=== PATIENT | female | born 1960 | race Caucasian/White ===

== ENCOUNTER 2018-01-06 11:22 | Outpatient (CLI) | payer OTHER ==
[2018-01-06 18:04] LABS: BASOPHILS # (AUTO) 0.1 10^3/uL (0.0-0.1); BASOPHILS % (AUTO) 1.1 %; EOSINOPHILS # (AUTO) 0.1 10^3/uL (0.0-0.7); EOSINOPHILS % (AUTO) 2.1 %; LYMPHOCYTES # (AUTO) 1.4 10^3/uL (1.5-3.5); LYMPHOCYTES % (AUTO) 28.5 %; MEAN CORPUSCULAR HEMOGLOBIN 30.4 pg (27.0-31.0); MEAN CORPUSCULAR HGB CONC 33.4 g/dL (32.0-36.0); MEAN CORPUSCULAR VOLUME 90.9 fL (81.0-99.0); MEAN PLATELET VOLUME 8.5 fL (7.9-10.8); MONOCYTES # (AUTO) 0.4 10^3/uL (0.0-1.0); MONOCYTES % (AUTO) 8.7 %; NEUTROPHILS # (AUTO) 2.9 10^3/uL (1.5-6.6); NEUTROPHILS % (AUTO) 59.6 %; PLT - PLATELET COUNT 247 10^3/uL (130-450); RED BLOOD COUNT 4.28 10^6/uL (4.20-5.40); RED CELL DISTRIBUTION WIDTH 13.1 % (12.0-15.0); WHITE BLOOD COUNT 4.9 x10^3/uL (4.8-10.8)
[2018-01-06 18:21] LABS: % IRON SATURATION 21 % (20-50); ALBUMIN 4.4 g/dL (3.2-5.5); ALBUMIN/GLOBULIN RATIO 1.6 (1.0-2.2); ALKALINE PHOSPHATASE 61 IU/L (42-121); ALT ALANINE AMINOTRANSFERASE 20 IU/L (10-60); AST ASPARTATE AMINOTRANSFERASE 26 IU/L (10-42); BILIRUBIN,TOTAL 0.7 mg/dL (0.2-1.0); BUN - BLOOD UREA NITROGEN 16 mg/dL (6-20); CARBON DIOXIDE - CO2 28 mmol/L (21-32); CHLORIDE 104 mmol/L (101-111); CHOL/HDL RATIO 2.3 (<4.4); CHOLESTEROL 223 mg/dL; CREATININE 0.6 mg/dL (0.4-1.0); CRP HIGH SENSITIVITY 1.2 mg/L; GFR - MDRD 103 (>89); GLUCOSE 83 mg/dL (70-100); HDL CHOLESTEROL 95 mg/dL; IRON 73 ug/dL (28-170); LDL CHOLESTEROL,CALCULATED 115 mg/dL; LDL/HDL RATIO 1.2 (<4.4); SODIUM 138 mmol/L (135-145); TOTAL IRON BINDING CAPACITY 353 ug/dL (250-450); TOTAL PROTEIN 7.1 g/dL (6.7-8.2); TRANSFERRIN 252 mg/dL (192-382); VLDL CHOLESTEROL 13 mg/dL
[2018-01-13 15:51] LABS: ENDOMYSIAL ANTIBODY SCR IGA NEGATIVE (NEGATIVE); GLIADIN (DEAMIDATED) AB IGA 4 U (<20); GLIADIN (DEAMIDATED) AB IGG 3 U (<20); IMMUNOGLOBULIN A 91 mg/dL (81-463); TISSUE TRANSGLUTAMINASE IGA <1 U/mL; TISSUE TRANSGLUTAMINASE IGG 1 U/mL
== END 2018-01-06 11:23 | disposition home or self-care (01) ==
LOC: LAB.F 11:22
PROVIDERS: ATTEND Naturopath
DX: E78.5 Hyperlipidemia, unspecified (principal); R42 Dizziness and giddiness; R53.83 Other fatigue; R10.9 Unspecified abdominal pain; R14.0 Abdominal distension (gaseous)
CPT/HCPCS: 36415; 80053; 80061; 82728; 82784; 83516; 83540; 83721; 84466; 85025; 86140; 86141; 86256

== ENCOUNTER 2018-03-27 13:55 | Outpatient (CLI) | payer OTHER ==
--- NOTE | 2018-03-27 16:27 | XRAY Report ---
Procedure Date: 03/27/2018 Accession Number: [id number] / [id number] Procedure: XRS - Cervical Spine Complete CPT Code: FULL RESULT: EXAM: Cervical Spine Complete DATE: 03/27/2018 2:17 PM CLINICAL HISTORY: CERVICALGIA COMPARISON: None. TECHNIQUE: 5 views. FINDINGS: Alignment: Preserved cervical alignment with relative straightening of the normal cervical curvature. Bones: The cervical vertebral bodies and posterior elements are well-visualized from the skull base through C7-T1. No fractures or bone lesions. Disks: Mild degenerative disc disease most pronounced at C5-6 and C6-7. Facets: No degenerative disease. Neural Foramina: The neural foramina have bony patency bilaterally. Soft Tissues: Normal. No prevertebral soft tissue swelling. The visualized lung apices are clear. IMPRESSION: Mild degenerative disease as described. RADIA
== END 2018-03-27 13:56 | disposition home or self-care (01) ==
LOC: DI.S 13:55
PROVIDERS: ATTEND Naturopath
DX: M50.31 Other cervical disc degeneration, high cervical region (principal)
CPT/HCPCS: 72050

== ENCOUNTER 2018-05-24 10:17 | Outpatient (CLI) | payer OTHER ==
[2018-05-24] MEDS ORDERED: GADOBUTROL 7.5 MMOL/7.5 ML VIAL ONE (10:41)
--- NOTE | 2018-05-25 18:24 | MRI Report ---
Reason: CERVICALGIA,PARESTHESIA OF SKIN Procedure Date: 05/24/2018 Accession Number: [id number] / [id number] Procedure: MRI - Cervical Spine W/O CPT Code: FULL RESULT: EXAM: MRI CERVICAL SPINE WITHOUT CONTRAST EXAM DATE: 05/24/2018 11:16 AM. CLINICAL HISTORY: Cervicalgia, paresthesia of skin. COMPARISONS: Cervical spine complete 03/27/2018. TECHNIQUE: Multiplanar, multisequence T1-weighted and fluid-sensitive sequences of the cervical spine without contrast. Other: None. FINDINGS: Neurologic Structures: The visualized posterior fossa structures are unremarkable. No signal abnormality in the visualized spinal cord. Alignment: Anterolisthesis 2 mm C4 on C5. Bone Marrow: No gross fractures or bone lesions. No marrow edema. Interspace Levels/Facets: C1-C2: Unremarkable. C2-C3: Mild facet joint arthrosis. C3-C4: Mild facet joint arthrosis. Negative for spinal canal stenosis or foraminal stenosis. C4-C5: Negative for spinal canal stenosis or foraminal stenosis. C5-C6: Posterior 1 mm disk protrusion. The neural foramina are negative for stenosis. C6-C7: Posterior right paracentral 2 mm disk protrusion which contacts the anterior cervical cord without cord deformity or cord signal abnormality. Negative for spinal canal stenosis or foraminal stenosis. C7-T1: Unremarkable. Musculature: Normal. No edema or fatty atrophy. Other: The paravertebral and prevertebral soft tissues are normal. IMPRESSION: 1. The spinal cord from the cervicomedullary junction to T2 is negative for signal abnormality. 2. Posterior right paracentral 2 mm disk protrusion C6-C7 which contacts the anterior cervical cord without cord deformity or cord signal abnormality. RADIA
== END 2018-05-24 10:18 | disposition home or self-care (01) ==
LOC: DI 10:17
PROVIDERS: ATTEND Naturopath
DX: M50.222 Other cervical disc displacement at C5-C6 level (principal)
CPT/HCPCS: 72141

== ENCOUNTER 2018-06-10 13:52 | Outpatient (CLI) | payer OTHER ==
--- NOTE | 2018-06-11 06:45 | XRAY Report ---
Reason: INCREASE BREATH SOUNDS DECREASED FREMITUS, CHEST Procedure Date: 06/10/2018 Accession Number: [id number] / [id number] Procedure: XRS - Chest 2 View X-Ray CPT Code: 01770 FULL RESULT: EXAM: CHEST RADIOGRAPHY EXAM DATE: 06/10/2018 02:06 PM. CLINICAL HISTORY: Increased breath sounds, decreased fremitus. Left chest pain. COMPARISON: None. TECHNIQUE: 2 views. FINDINGS: Lungs/Pleura: No focal opacities evident. Biapical pleural thickening. No pleural effusion. No pneumothorax. Normal volumes. Mediastinum: Heart and mediastinal contours are unremarkable. Other: None. IMPRESSION: No acute process seen in the chest. RADIA
== END 2018-06-10 13:53 | disposition home or self-care (01) ==
LOC: DI.S 13:52
PROVIDERS: ATTEND Naturopath
DX: R09.89 Other specified symptoms and signs involving the circulatory and respiratory systems (principal); R07.9 Chest pain, unspecified
CPT/HCPCS: 71046

== ENCOUNTER 2018-07-15 14:55 | Outpatient (CLI) | payer OTHER ==
--- NOTE | 2018-07-15 15:24 | XRAY Report ---
Reason: UNSPECIFIED ACQUIRED DEFORMITY OF HAND, LEFT RT Procedure Date: 07/15/2018 Accession Number: [id number] / [id number] Procedure: XR - Hand 3 View BILAT CPT Code: FULL RESULT: EXAMS: 1. Right Hand Radiography 2. Left Hand Radiography EXAM DATE: 07/15/2018 03:13 PM. CLINICAL HISTORY: Unspecified acquired deformity of hand, left and right. COMPARISON: None. TECHNIQUE: 3 views each hand. FINDINGS: Right: Bones: Normal. No fractures or bone lesions. Joints: Mild to moderate degenerative changes of the first metacarpophalangeal joint. Degenerative changes and joint space loss is also seen in the fourth distal interphalangeal joint with surrounding soft tissue swelling. Left: Bones: Normal. No fractures or bone lesions. Joints: Moderate degenerative changes at the first metacarpophalangeal joint and likely posttraumatic degenerative changes at the third middle interphalangeal joint with surrounding soft tissue swelling and joint space loss which could also be seen in the setting of erosive osteoarthritis. IMPRESSION: Purely degenerative changes at the metacarpophalangeal joints. This is typical of osteoarthrosis. 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 RADIA
== END 2018-07-15 14:56 | disposition home or self-care (01) ==
LOC: DI 14:55
PROVIDERS: ATTEND Naturopath
DX: M19.042 Primary osteoarthritis, left hand (principal); M19.041 Primary osteoarthritis, right hand

== ENCOUNTER 2018-11-28 00:49 | Outpatient (CLI) | payer OTHER | END 2018-11-28 00:50 | disposition critical access hospital (66) | LOC: EMS 00:49 | PROVIDERS: ATTEND Surgery | DX: M54.2 Cervicalgia (principal); R20.0 Anesthesia of skin; R07.89 Other chest pain | CPT/HCPCS: A0425; A0427 ==

== ENCOUNTER 2018-11-28 01:20 | Emergency (ER) | payer OTHER ==
[2018-11-28 02:18] LABS: BASOPHILS % (AUTO) 0.5 %; EOSINOPHILS # (AUTO) 0.1 10^3/uL (0.0-0.7); EOSINOPHILS % (AUTO) 1.1 %; HGB - HEMOGLOBIN 12.2 g/dL (12.0-16.0); LYMPHOCYTES # (AUTO) 1.4 10^3/uL (1.5-3.5); LYMPHOCYTES % (AUTO) 22.1 %; MEAN CORPUSCULAR HEMOGLOBIN 31.2 pg (27.0-31.0); MEAN CORPUSCULAR HGB CONC 34.3 g/dL (32.0-36.0); MEAN CORPUSCULAR VOLUME 90.9 fL (81.0-99.0); MEAN PLATELET VOLUME 7.6 fL (7.9-10.8); MONOCYTES # (AUTO) 0.4 10^3/uL (0.0-1.0); NEUTROPHILS # (AUTO) 4.4 10^3/uL (1.5-6.6); NEUTROPHILS % (AUTO) 69.3 %; PLT - PLATELET COUNT 237 10^3/uL (130-450); RED BLOOD COUNT 3.93 10^6/uL (4.20-5.40); RED CELL DISTRIBUTION WIDTH 12.4 % (12.0-15.0); WHITE BLOOD COUNT 6.4 x10^3/uL (4.8-10.8)
[2018-11-28 02:29] LABS: ALBUMIN/GLOBULIN RATIO 1.4 (1.0-2.2); BILIRUBIN,TOTAL 0.8 mg/dL (0.2-1.0); CALCIUM 8.8 mg/dL (8.5-10.3); CREATININE 0.6 mg/dL (0.4-1.0); TOTAL PROTEIN 6.8 g/dL (6.7-8.2)
--- NOTE | 2018-11-28 02:44 | XRAY Report ---
Reason: chest pain Procedure Date: 11/28/2018 Accession Number: [id number] / [id number] Procedure: XR - Chest 1 View X-Ray CPT Code: 67542 FULL RESULT: EXAM: CHEST RADIOGRAPHY EXAM DATE: 11/28/2018 02:16 AM. CLINICAL HISTORY: Chest pain. COMPARISON: CHEST 2 VIEW 06/10/2018 2:12 PM. TECHNIQUE: 1 view. FINDINGS: Lungs/Pleura: Large lung volumes. No alveolar consolidation or pleural effusion seen. No pneumothorax. Mediastinum: Within exam limitations, the cardiomediastinal contour is normal. Other: None. IMPRESSION: 1. No acute abnormality seen in the chest. RADIA
--- NOTE | 2018-11-28 04:24 | ED Physician Documentation ---
PD HPI CHEST PAIN - Stated complaint Stated Complaint: LEFT SIDED CP - Chief complaint Chief Complaint: Cardiac - History obtained from History obtained from: Patient - History of Present Illness Timing - onset: How many hours ago (approximately 1 hour [employer]) Timing - onset during: Sleep Timing - details: Abrupt onset Pain level now: 2 Quality: Tightness Location: Substernal Radiation: Other (across chest bilaterally) Improved by: Nothing Worsened by: Other (no exacerbating factors) Associated symptoms: No: Shortness of air, Diaphoresis, Nausea, Vomiting, Feeling faint / dizzy, General Weakness, Palpitations, Cough Recently seen: Not recently seen - Additional information Additional information: patient woke from sleep tonight feeling shaky, cold, with neck pain and chest tightness. symptoms improved en route to ED. she has recurrent neck pain although her other symptoms tonight are new for her. she recently started topamax for her chronic neck pain, on low dose with plan to gradually titrate dose up Review of Systems Constitutional: reports: Chills. denies: Fever, Fatigue, Sweats Cardiac: reports: Chest pain / pressure. 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 HEENT: Tonsil/Adenoidectomy - Present Medications Home Medications: Ambulatory Orders Medication Instructions Recorded Confirmed Methocarbamol [Robaxin] 750 mg PO Q6H PRN #20 tablet 11/28/18 Topiramate [Topamax] 1 tab PO DAILY 11/28/18 11/28/18 Tramadol HCl 50 mg PO Q6HR PRN #20 tablet 11/28/18 - Allergies Allergies/Adverse Reactions: Allergies Allergy/AdvReac Type Severity Reaction Status Date / Time No Known Drug Allergies Allergy Verified 11/28/18 01:32 - Social History Does the pt smoke?: No Smoking Status: Never smoker Does the pt drink ETOH?: Yes Does the pt have substance abuse?: No - Immunizations Immunizations are current?: Yes - POLST Patient has POLST: No PD ED PE NORMAL - Vitals Vital signs reviewed: Yes - General General: Alert and oriented X 3, No acute distress, Well developed/nourished - HEENT HEENT: Moist mucous membranes - Neck Neck: Supple, no meningeal sign, Thyroid normal - Cardiac Cardiac: RRR, No murmur, No gallop, No rub - Respiratory Respiratory: No respiratory distress, Clear bilaterally - Abdomen Abdomen: Soft, Non tender - Derm Derm: Normal color, Warm and dry, No rash - Extremities Extremities: No edema - Neuro Neuro: Alert and oriented X 3, manager program management 2-12 intact Results - Vitals Vitals: Oxygen O2 Source Room air - EKG (time done) No standard instances Rate: Rate (enter#) (72) Rhythm: NSR [place]: Normal Intervals: Normal [place] QRS: Normal Ischemia: Normal ST segments - Labs Labs: Laboratory Tests 11/28/18 11/28/18 11/28/18 02:05 02:05 02:05 WBC 6.4 RBC 3.93 L Hgb 12.2 Hct 35.7 L MCV 90.9 MCH 31.2 H MCHC 34.3 RDW 12.4 Plt Count 237 MPV 7.6 L Neut # (Auto) 4.4 Lymph # (Auto) 1.4 L Culberson # (Auto) 0.4 Eos # (Auto) 0.1 Baso # (Auto) 0.0 Absolute Nucleated RBC 0.00 Nucleated RBC % 0.0 Sodium 138 Potassium 3.6 Chloride 105 Carbon Dioxide 25 Anion Gap 8.0 BUN 16 Creatinine 0.6 Estimated GFR (MDRD) 103 Glucose 113 H Calcium 8.8 Total Bilirubin 0.8 AST 21 ALT 16 Alkaline Phosphatase 60 Troponin I < 0.04 Total Protein 6.8 Albumin 4.0 Globulin 2.8 Albumin/Globulin Ratio 1.4 Lipase 26 - Rads (name of study) chest xray Radiology: Prelim report reviewed, See rad report PD MEDICAL DECISION MAKING - ED course Complexity details: reviewed results, re-evaluated patient, considered differential, d/w patient Departure - Departure Disposition: 01 Home, Self Care Clinical Impression: Chest pain Condition: Good Instructions: ED Chest Pain Atypical Unkn Cause Follow-Up: Jackelin Martin ND [Primary Care Provider] - Within 1 week Prescriptions: Tramadol HCl 50 mg PO Q6HR PRN #20 tablet PRN Reason: Pain Methocarbamol [Robaxin] 750 mg PO Q6H PRN #20 tablet PRN Reason: Spasms Discharge Date/Time: 11/28/18 05:10
[2018-11-28] MEDS ORDERED: traMADol 50 MG TABLET PO STA (04:58)
[2018-11-28] MEDS ORDERED: METHOCARBAMOL 500 MG TABLET PO STA (04:58)
[2018-11-28 05:20] VITALS: BP 112/70
== END 2018-11-28 05:10 | disposition home or self-care (01) ==
LOC: EDUNIT# → ED 01:20
DX: R07.9 Chest pain, unspecified (principal)
CPT/HCPCS: 36415; 71045; 80053; 83690; 84484; 85025; 93005; 99284; A9270

== ENCOUNTER 2020-10-23 17:22 | Outpatient (CLI) | payer OTHER | END 2020-10-23 17:23 | disposition home or self-care (01) | LOC: COV 17:22 | PROVIDERS: ATTEND Family Medicine | DX: R05 Cough (principal); J34.89 Other specified disorders of nose and nasal sinuses; Z20.822 Contact with and (suspected) exposure to COVID-19 ==

== ENCOUNTER 2020-10-26 15:55 | Outpatient (CLI) | payer OTHER ==
--- NOTE | 2020-10-26 16:18 | XRAY Report ---
PROCEDURE: Chest 2 View X-Ray INDICATIONS: Cough TECHNIQUE: 2 view(s) of the chest. COMPARISON: 11/28/2018 FINDINGS: Surgical changes and devices: None. Lungs and pleura: No pleural effusions or pneumothorax. Lungs are clear. Mediastinum: Mediastinal contours are normal. Heart size is normal. Bones and chest wall: No suspicious bony abnormalities. Soft tissues appear unremarkable. IMPRESSION: No acute cardiopulmonary process demonstrated radiographically. Reviewed by: Herb Whitmore MD on 10/26/2020 4:17 PM PST Approved by: Herb Whitmore MD on 10/26/2020 4:17 PM PST Station ID: [id number]
== END 2020-10-26 23:59 | disposition home or self-care (01) ==
LOC: DI.S 15:55
PROVIDERS: ATTEND Physician Assistant
DX: R05 Cough (principal)

== ENCOUNTER 2024-03-21 16:44 | Emergency (ER) | payer OTHER ==
[2024-03-21 16:57] VITALS: BP 119/71; O2SAT 99
--- NOTE | 2024-03-21 17:11 | ED Physician Documentation ---
PD HPI LOWER EXT INJURY - Stated complaint Stated Complaint: FALL/LOWER BACK PX - Chief complaint Chief Complaint: Trauma Ext - History obtained from History obtained from: Patient - Additional information Additional information: Her 17 hand high horse got "spooked about an hour ago and she was bucked off. She thinks she landed on her left hip. She is able to walk and bear weight. She did hit her head but denies headache or loss of consciousness. She declines pain medication on initial evaluation. 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 - Present Medications Home Medications: Ambulatory Orders Medication Instructions Recorded Confirmed FLUoxetine [PROzac] 20 mg PO DAILY 03/21/24 03/21/24 HYDROcod/ACETAM 5/325 [[place] 5/325] 1 - 2 tab PO Q6H PRN #20 tablet 03/21/24 - Allergies Allergies/Adverse Reactions: Allergies Allergy/AdvReac Type Severity Reaction Status Date / Time No Known Drug Allergies Allergy Verified 03/21/24 16:58 - Social History Does the pt smoke?: No Smoking Status: Never smoker Does the pt drink ETOH?: Yes Does the pt have substance abuse?: No - Immunizations Immunizations are current?: Yes - POLST Patient has POLST: No PD ED PE NORMAL - Vitals Vital signs reviewed: Yes - General General: Alert and oriented X 3, No acute distress - HEENT HEENT: PERRL, EOMI - Neck Neck: Supple, no meningeal sign, No bony TTP - Cardiac Cardiac: RRR, No murmur - Respiratory Respiratory: No respiratory distress, Clear bilaterally - Abdomen Abdomen: Normal bowel sounds, Soft, Non tender - Back Back: No CVA TTP, No spinal TTP - Derm Derm: Normal color, Warm and dry - Extremities Extremities: Other (Mild diffuse tenderness of the lumbar spine area and a little more over the left hip, with some painful range of motion of the left hip. No pain with pelvic compression. The remainder of her extremities are nontender.) - Neuro Neuro: Alert and oriented X 3, Normal speech Eye Opening: Spontaneous Motor: Obeys Commands Verbal: Oriented GCS Score: 15 Results - Vitals Vitals: Vital Signs - 24 hr 03/21/24 16:45 Temperature 36.3 C L Heart Rate 79 Respiratory 16 Rate Blood Pressure 119/71 O2 Saturation 99 Oxygen O2 Source Room air - Rads (name of study) CT of the pelvis was negative for acute traumatic injuries. Relevant Findings:: Final report received, EMP independent interpretation of test CT lumbar spine showing multiple areas of degenerative change in minor T12 compression fracture Relevant Findings:: Final report received, EMP independent interpretation of test PD Medical Decision Making - ED course ED course: She presents after a fall from horse. Clinically does not have a hip fracture and CT imaging does demonstrate a T12 fracture and she was counseled on conservative care of this. Given return precautions. No evidence of significant head or other injuries otherwise. Initially did not want any pain medication but after finding out that she did have fracture back was amenable to some hydrocodone and given four to go given that it is Friday evening. Departure - Departure Disposition: 01 Home, Self Care Clinical Impression: T12 compression fracture Qualifiers: Encounter type: initial encounter Qualified Code(s): S22.080A - Wedge compression fracture of T11-T12 vertebra, initial encounter for closed fracture Fall from horse Qualifiers: Encounter type: initial encounter Qualified Code(s): V80.010A - Animal-rider injured by fall from or being thrown from horse in noncollision accident, initial encounter Contusion of left hip Qualifiers: Encounter type: initial encounter Qualified Code(s): S70.02XA - Contusion of left hip, initial encounter Condition: Good Record reviewed to determine appropriate education?: Yes Instructions: ED Fx Comp Vertebral Prescriptions: HYDROcod/ACETAM 5/325 [[place] 5/325] 1 - 2 tab PO Q6H PRN #20 tablet PRN Reason: Pain Comments: CT imaging demonstrates the minor T12 compression fracture. This requires no specific treatment, but will probably hurt for some time albeit not as bad after the first few days. I sent the prescription electronically to the [facility] in [place]. Follow-up with your doctor in about a week to see how you are healing. In addition to the prescription pain medication you can also take lidocaine patches which are available [id number]-[id number] per package instructions. I am prescribing a short course of narcotic pain medication for you. These are potentially dangerous and addictive medications that should be used carefully. These medications may constipate you. Take an mzad-dfu-kphdrbd stool softener (docusate) twice daily with plenty of water while taking these medications. If you go 24 hours without a bowel movement, take bdmj-pcz-ujcewss miralax, per package instructions. Do not drink or drive while taking these medications. If you received narcotic or sedating medications while in the emergency department, do not drive for 24 hours. Store this medication in a safe, secure place and out of reach of children. It is a violation of federal law to give or sell this medication to another person or to use in a manner other than prescribed. The ED will not refill narcotic prescriptions, including prescriptions lost or stolen. To dispose of unwanted medications: 1. [facility] [place][Note 2][employer] provides a drop box for medication in pill form only (no liquids) 8:00 am to 4:30 p.m. Friday-Friday in the lobby of the [facility], [address] [place] [address]. Empty pills into ziplock bag before disposal. Call [phone] for information. 2.[employer] is a free service available to all [facility] residents. Go to [email or web address]/ Note that many narcotic pain relievers also contain Tylenol/acetaminophen. Please ensure that your total dose of acetaminophen from all sources does not exceed 3 g (3000 mg) per day. CT reads as follows: PROCEDURE: Pelvis WO INDICATIONS: pelvic inj, focus l hip TECHNIQUE: Noncontrast 3 mm axial sections acquired through the bony pelvis, with coronal and sagittal reformatting. For radiation dose reduction, the following was used: automated exposure control, adjustment of mA and/or kV according to patient size. COMPARISON: Correlation is made with the accompanying imaging. FINDINGS: Image quality: Excellent. Bones: No left-sided fracture is seen. No fractures or dislocations can be seen elsewhere. No suspicious lytic or blastic lesions are seen. Osteitis pubis can be seen, which is not considered to be abnormal for a female patient of this age. The L5 level is sacralized on the left side. Soft tissues: No dilated loops of bowel are seen. The visualized colon is within normal limits. A normal appendix is seen. No free fluid can be seen. The uterus demonstrates an unremarkable appearance for age. No adnexal masses are seen. No focal bladder wall thickening can be seen. Right groin postoperative clips are seen. No enlarged lymph nodes are seen. IMPRESSION: Negative for left hip fracture. No fractures or dislocations can be seen elsewhere. Additional findings: L5 sacralized on the left Osteitis pubis Right groin clips Reviewed by: Dario Anthony MD on 03/21/2024 4:46 PM AKDT PROCEDURE: Pelvis WO INDICATIONS: pelvic inj, focus l hip TECHNIQUE: Noncontrast 3 mm axial sections acquired through the bony pelvis, with coronal and sagittal reformatting. For radiation dose reduction, the following was used: automated exposure control, adjustment of mA and/or kV according to patient size. COMPARISON: Correlation is made with the accompanying imaging. FINDINGS: Image quality: Excellent. Bones: No left-sided fracture is seen. No fractures or dislocations can be seen elsewhere. No suspicious lytic or blastic lesions are seen. Osteitis pubis can be seen, which is not considered to be abnormal for a female patient of this age. The L5 level is sacralized on the left side. Soft tissues: No dilated loops of bowel are seen. The visualized colon is within normal limits. A normal appendix is seen. No free fluid can be seen. The uterus demonstrates an unremarkable appearance for age. No adnexal masses are seen. No focal bladder wall thickening can be seen. Right groin postoperative clips are seen. No enlarged lymph nodes are seen. IMPRESSION: Negative for left hip fracture. No fractures or dislocations can be seen elsewhere. Additional findings: L5 sacralized on the left Osteitis pubis Right groin clips Reviewed by: Dario Anthony MD on 03/21/2024 4:46 PM AKDT Forms: PCP List Discharge Date/Time: 03/21/24 18:18
--- NOTE | 2024-03-21 17:47 | CT Report ---
PROCEDURE: Pelvis WO INDICATIONS: pelvic inj, focus l hip TECHNIQUE: Noncontrast 3 mm axial sections acquired through the bony pelvis, with coronal and sagittal reformatt ing. For radiation dose reduction, the following was used: automated exposure control, adjustment of mA and/or kV according to patient size. COMPARISON: Correlation is made with the accompanying imaging. FINDINGS: Image quality: Excellent. Bones: No left-sided fracture is seen. No fractures or dislocations can be seen elsewhere. No suspic ious lytic or blastic lesions are seen. Osteitis pubis can be seen, which is not considered to be abn ormal for a female patient of this age. The L5 level is sacralized on the left side. Soft tissues: No dilated loops of bowel are seen. The visualized colon is within normal limits. A no rmal appendix is seen. No free fluid can be seen. The uterus demonstrates an unremarkable appearance for age. No adnexal masses are seen. No focal blad rosemary wall thickening can be seen. Right groin postoperative clips are seen. No enlarged lymph nodes ar e seen. IMPRESSION: Negative for left hip fracture. No fractures or dislocations can be seen elsewhere. Additional findings: L5 sacralized on the left Osteitis pubis Right groin clips Reviewed by: Dario Anthony MD on 03/21/2024 4:46 PM ZELDA Approved by: Dario Anthony MD on 03/21/2024 4:46 PM ZELDA Station ID: [id number]
--- NOTE | 2024-03-21 17:51 | CT Report ---
PROCEDURE: Lumbar Spine WO INDICATIONS: back inj TECHNIQUE: Noncontrast 3 mm thick sections acquired from the T12 level to the sacrum. Sagittal and coronal refo rmats were constructed. For radiation dose reduction, the following was used: automated exposure co ntrol, adjustment of mA and/or kV according to patient size. COMPARISON: Correlation is made with the accompanying imaging. FINDINGS: Image quality: Excellent. Bones: At the T12 level, there is an acute fracture seen superiorly, with 10-20% loss of height. No posterior displacement of fracture fragments can be seen. No suspicious lytic or blastic bony lesions. Central spinal caliber is of normal overall caliber. N o pars defects. Mild levoconvex scoliotic curvature is seen. This patient has transitional anatomy. For the purposes of this examination, the level with posterior ribs is considered to be T12. By the summary scheme, the L5 level is highly sacralized on the left. T12-L1: Mild loss of disc height is seen. Mild disc bulge is seen. No neural foraminal narrowing or central canal narrowing can be seen. L1-L2: Level within normal limits L2-L3: The disc height is well-preserved. Mild to moderate disc bulge is seen, with a right forami nal disc protrusion, as on series 17 image 39. There is moderate left-sided and no right-sided neurof oraminal narrowing. No central canal narrowing is seen. L3-L4: Mild loss of disc height is seen. Moderate disc bulge is seen at this level. A superimpos ed central disc protrusion is seen. There is moderate left-sided and mild right-sided neuroforaminal narrowing. No central canal narrowing is seen. L4-L5: The disc height is well-preserved. Moderate disc bulge is seen at this level. Moderate fac et hypertrophy is seen. There is moderate right-sided and no left-sided neuroforaminal narrowing. Mo derate central canal narrowing is seen. L5-S1: At least moderate loss of disc height is seen. Vacuum disc phenomenon is seen at this level . Endplate irregularity and sclerosis can be seen. Moderate facet hypertrophy is seen. There is at l east moderate left-sided and epwj-or-smzvxune right-sided neuroforaminal narrowing. No significant ce ntral canal narrowing is seen. Soft tissues: No retroperitoneal masses or hematomas. Visualized aorta is normal in caliber. IMPRESSION: Acute fracture of the superior endplate of T12, with 10-20% loss of height. No posterior displacement of fracture fragments can be seen. Multiple levels of degenerative change can be seen. There is transitional lumbar anatomy, with sacralization of L5 on the left Reviewed by: Dario Anthony MD on 03/21/2024 4:50 PM AKDANE Approved by: Dario Anthony MD on 03/21/2024 4:50 PM VTDANE Station ID: [id number]
[2024-03-21] MEDS: HYDROcod/ACET 5/325 Prepack 4 PO STA (18:14)
== END 2024-03-21 18:18 | disposition home or self-care (01) ==
LOC: ED 16:44
DX: S22.080A Wedge compression fracture of T11-T12 vertebra, initial encounter for closed fracture (principal); S70.02XA Contusion of left hip, initial encounter; V80.010A Animal-rider injured by fall from or being thrown from horse in noncollision accident, initial encounter; Y93.52 Activity, horseback riding
CPT/HCPCS: 99284